=== PATIENT | male | born 1940 | race Caucasian/White ===

== ENCOUNTER 2017-02-09 10:09 | Day surgery (SDC) | payer MEDICARE, OTHER ==
[~2017-02-09 10:09] MED LIST: LACTATED RINGERS 1,000 ML IV SCH
[2017-02-09] MEDS ORDERED: LACTATED RINGERS 1,000 ML ONE (10:34)
[2017-02-09] MEDS ORDERED: IV START KIT ONE (10:34)
[2017-02-09] MEDS ORDERED: PROPOFOL 20 ML IV ONE (11:05)
[2017-02-09 15:52] LABS: HELICOBACTER PYLORII DETECTION NEGATIVE (NEGATIVE)
--- NOTE | 2017-02-14 10:41 | SURGPATH ---
[facility] [address] [place] [address] Patient Name: HELEN CLANCY MR#: [id number] : 1940 Gender: M Specimen #: [id number] Collected: 02/09/2017 Received: 02/11/2017 Reported: 02/14/2017 Submitting Phys: PACHECO LEONARD Copy To Phys: [facility] HIM GIGENA, TAVO Clinical History / Pre-Operative Diagnosis: LUQ and LLQ pain; rule out giardia, celiac sprue and gastritis Specimen Source / Surgical Procedure Performed: #1-duodenal biopsy; #2-antral biopsy; #3-proximal transverse colon polyp; #4-sigmoid polyp at 20 cm Interpretation: 1. DUODENUM, BIOPSY: - PEPTIC DUODENITIS 2. STOMACH, ANTRUM, BIOPSY: - GASTRIC MUCOSA WITH NO DIAGNOSTIC ABNORMALITY 3. PROXIMAL TRANSVERSE COLON, POLYP, BIOPSY: - TUBULAR ADENOMA 4. SIGMOID COLON, POLYP AT 20 CM, BIOPSY: - HYPERPLASTIC POLYP Electronically Signed Out Ameena White M.D. Gross Description: #1 The specimen is received in a formalin filled container labeled with the patient's name and "duodenal biopsy". Two hussein biopsies are 0.3 and 0.4 cm. Totally embedded in cassette #1. #2 The specimen is received in a formalin filled container labeled with the patient's name and "antral biopsy". Two hussein biopsies are 0.3 and 0.5 cm. Totally embedded in cassette #2. #3 The specimen is received in a formalin filled container labeled with the patient's name and "proximal transverse colon polyp". A polypoid hussein biopsy is 0.3 cm. Totally embedded in cassette #3. #4 The specimen is received in a formalin filled container labeled with the patient's name and "sigmoid polyp at 20 cm". A single rea-hussein biopsy is 0.7 x 0.3 x 0.1 cm. Totally embedded in cassette #4. Bowen Paul Microscopic Description: 1. Sections show small bowel mucosa with mild active inflammation, foveolar metaplasia and Ricardo gland hyperplasia. There is no dysplasia. 2. Sections show fragments of gastric mucosa. There is normal mucosal architecture and no significant inflammation. No Helicobacter organisms are identified and there is no intestinal metaplasia or dysplasia. 3. Sections show fragments of adenomatous colonic mucosa without high grade dysplasia. 4. Sections show fragments of hyperplastic colonic mucosa without dysplasia. 1: 79947 2: 41565 3: 60320 4: 84992 K29.80 D12.3
== END 2017-02-09 12:25 | disposition home or self-care (01) ==
LOC: SDC 10:09
PROVIDERS: ATTEND Internal Medicine Gastroenterology
PROC: 0DB98ZX Excision of Duodenum, Via Natural or Artificial Opening Endoscopic, Diagnostic (ICD-10-PCS; principal; 2017-02-09)
PROC: 0DB68ZX Excision of Stomach, Via Natural or Artificial Opening Endoscopic, Diagnostic (ICD-10-PCS; 2017-02-09)
PROC: 0DBL8ZX Excision of Transverse Colon, Via Natural or Artificial Opening Endoscopic, Diagnostic (ICD-10-PCS; 2017-02-09)
PROC: 0DBN8ZX Excision of Sigmoid Colon, Via Natural or Artificial Opening Endoscopic, Diagnostic (ICD-10-PCS; 2017-02-09)
DX: K57.30 Diverticulosis of large intestine without perforation or abscess without bleeding (principal); D12.3 Benign neoplasm of transverse colon; K63.5 Polyp of colon; K29.80 Duodenitis without bleeding; E11.9 Type 2 diabetes mellitus without complications; I12.9 Hypertensive chronic kidney disease with stage 1 through stage 4 chronic kidney disease, or unspecified chronic kidney disease; N18.9 Chronic kidney disease, unspecified; E79.0 Hyperuricemia without signs of inflammatory arthritis and tophaceous disease; E78.5 Hyperlipidemia, unspecified; E55.9 Vitamin D deficiency, unspecified; Z87.442 Personal history of urinary calculi; Z88.8 Allergy status to other drugs, medicaments and biological substances
CPT/HCPCS: 87081; 43239; 45380; J7120